=== PATIENT | male | born 1965 ===

== ENCOUNTER → 2022-06-15 10:54 | Outpatient (CLI) | payer BC, SELFPAY ==
--- NOTE | ~2022-06-15 | US_ITS ---
US abdomen complete EXAMINATION: US Abdomen Complete INDICATION: Elevated liver enzymes PROCEDURE: Realtime High Resolution abdomen ultrasound. COMPARISON: No prior studies for comparison FINDINGS: Gallbladder contains stones. No gallbladder wall thickening or pericholecystic fluid. Comm on bile duct measures 3.8 mm. Liver echotexture within normal limits without focal mass. Pancreas within normal limits. Pancreati c tail is obscured by bowel gas. Spleen is unremarkeable. Renal echotexture is within normal limits bilaterally without hydronephrosis, contour deforming mass or renal stone. There is a right renal cys t measuring 3.9 x 4 x 3.3 cm Right kidney measures 10.2 cm. Left kidney measures 9.3 cm. Visualized aspects of the aorta and IVC are within normal limits. Portal vein is patent. No sonograph ic Paredes's sign indicated by the technologist. IMPRESSION: 1: Cholelithiasis. 2: Right renal cyst measuring 4 cm. Reviewed, dictated and finalized at location A.
== END ==
PROVIDERS: PCP Family Medicine; Visit Provider Family Medicine
DX: R94.5 Abnormal results of liver function studies (principal); N28.1 Cyst of kidney, acquired; K80.20 Calculus of gallbladder without cholecystitis without obstruction
CPT/HCPCS: 76700

== ENCOUNTER → 2023-08-26 08:22 | Outpatient (CLI) | payer BC, SELFPAY ==
--- NOTE | ~2023-08-26 | US_ITS ---
Abdominal Sonogram: Real-time sonographic imaging of the abdomen was performed. Clinical History: Abnormal liver function Findings: The liver appears normal with no evidence of mass lesion or bile duct dilatation. Main por robby vein demonstrates normal direction of flow. The spleen is normal in size without evidence of foca l lesion. The gallbladder is well distended, and contains echogenic, shadowing gallstones. No gallbl adder wall thickening evident. The common bile duct measures 3 mm. The visualized pancreas, aorta, a nd IVC are unremarkable. The right kidney measures 12.9 cm in length and the left kidney measures 11 .1 cm. There is no hydronephrosis or renal calculus. Right lower pole renal cyst present. Impression: Cholelithiasis. Reviewed, dictated and finalized at location . COORDINATOR Impression: Cholelithiasis.
== END ==
PROVIDERS: PCP Family Medicine; Visit Provider Family Medicine
DX: K80.20 Calculus of gallbladder without cholecystitis without obstruction (principal); K76.89 Other specified diseases of liver
CPT/HCPCS: 76700